=== PATIENT | female | born 2000 | race Asian ===

== ENCOUNTER 2023-09-27 01:34 | Emergency (ER) | payer MEDICAID, SELFPAY ==
--- NOTE | ~2023-09-27 | XR_ITS ---
EXAMINATION: XR ANKLE, RIGHT CLINICAL INFORMATION: Inversion injury. COMPARISON: None available. TECHNIQUE: AP, lateral, and mortise views of the right ankle. FINDINGS: No fracture. Alignment is anatomic. Ankle mortise is symmetric. No erosions. Joint spaces are maintained. Small ankle joint effusion. Mild soft tissue swelling at the ankle. XR/XR ankle RT min 3V IMPRESSION: 1. No acute fracture or malalignment. 2. Small ankle joint effusion.
--- NOTE | ~2023-09-27 | XR_ITS ---
EXAMINATION: XR FOOT, RIGHT CLINICAL INFORMATION: Fall. Pain. COMPARISON: None available. TECHNIQUE: AP, lateral, and oblique views of the right foot. FINDINGS: No fracture or malalignment. Bone mineralization is normal. Joint spaces well-preserved. No erosions. Ankle joint effusion. Ankle joint soft tissue swelling. XR/XR foot RT min 3V IMPRESSION: No acute fracture or malalignment. Ankle joint effusion and surrounding soft tissue swelling.
[2023-09-27 02:19] VITALS: BP 116/70; PULSE 87; RESP 16; TEMP 37.1; O2SAT 100; BMI 26.0
--- NOTE | 2023-09-27 03:33 | ED_ITS ---
HPI - Extremity Injury (Lower) General Chief Complaint: Extremity Injury, Lower Stated Complaint: right foot swelling and pain Time Seen by Provider: 09/27/23 03:25 Source: patient Mode of arrival: ambulatory Limitations: no limitations History of Present Illness ED Provider: PEACE CURRY Narrative: 23 yo female mechanical fall inversion injury to R ankle and fell onto L knee no injury to knee other than abrasion has never injured R ankle before MD complaint: ankle injury Onset (ago): hour(s) (1) Injury: Right: ankle Type of Injury: inversion Place: street/outdoors Severity: moderate Relieving factors: immobilization and rest Exacerbating factors: weight bearing, movement and palpation Context: fall Associated symptoms: snap/pop sensation and swelling Other symptoms: none Related Data Allergies Allergy/AdvReac Type Severity Reaction Status Date / Time No Known Allergies Allergy Verified 09/27/23 02:21 Review of Systems Review of Systems: Constitutional : No Fever, No Chills ENT/Mouth : No Ear Pain, No Hoarseness, No sore throat Cardiovascular : No Chest Pain, No SOB Respiratory : No Cough, No Dyspnea Gastrointestinal : No Nausea, No Vomiting, No Diarrhea, No abdominal Pain Musculoskeletal : positive joint pain, No Myalgias, pos Joint Swelling Skin : No Skin lacerations, No rash Neuro : No Weakness, No Numbness, No Loss of Consciousness, No Dizziness, No Headache Psych : No Anxiety/Panic, No Depression All other systems reviewed and are negative [facility] Past Medical History Attestation statement: The following information was validated with the patient. Source: old records reviewed Medical History No pertinent past medical history Social History Social History (Updated 09/27/23 @ 03:45 by Celi Wallace DO) Patient Tobacco Use Status: Never used Tobacco Advance Directives: No Advance Directives Information Provided: No Do you have a plan to hurt others: No Plan Physical Exam Vital Signs: Vital Signs: Last Vital Signs Temp 98.7 F 09/27/23 02:19 Pulse 87 09/27/23 02:19 Resp 16 09/27/23 02:19 BP 116/70 09/27/23 02:19 Pulse Ox 100 09/27/23 02:19 O2 Del Method Room Air 09/27/23 02:19 BMI result Body Mass Index 26.0 Appearance: Alert. Oriented X3. No acute distress. Eyes: Pupils equal, round and reactive to light. ENT: Pharynx normal. Neck: Normal inspection. Neck supple. CVS: Normal heart rate and rhythm. Pulses normal. Respiratory: No respiratory distress. Breath sounds normal. Abdomen: Soft and nontender. Skin: Skin warm and dry. Normal skin color. Normal skin turgor. Extremities: No lower extremity edema. R ankle ttp along anterior joint and lateral malleolus distal NV intact BCR in all digits silt throughout, no prox fibula ttp L knee normal ROM but has superficial abrasion noted Neuro: Oriented X 3. No motor deficit. No sensory deficit. Medical Decision Making Medical Decision Making MDM Narrative: 23 yo female with no sig PMH here with c/o R ankle injury and L knee abrasion at this time she is NV intact will obtain xrays of R ankle, clean L knee - aircast and crutches Differential Diagnosis Differential Diagnoses: The differential diagnosis associated with the presentation includes sprain, strain, fracture Independent Interpretation I performed an independent interpretation of an: Plain X-Ray (no fracture) Radiology Impression Discussion of test interpretation with radiology: I have reviewed the radiologist's reading. Independent Historian Clinical information obtained from an independent historian. History obtained from or confirmed by: Friend Prescription Management I considered prescription management with: Pain Medication Procedures Orthopedic Splinting/Casting Injury #1: Side: right Lower Extremity Injury Location: ankle Lower Extremity Immobilizer: AirCast Other Orthopedic Equipment: crutches Discharge Plan Discharge Clinical Impression: Ankle sprain and strain, Abrasion Patient Disposition: Home, Self-Care Instructions: Ankle Sprain (ED), Abrasion (ED) Additional Instructions: no broken bones in foot or ankle keep elevated, ice for 10 minutes at time use cloth in between crutches for 5 days then bear weight - aircast for 7 to 10 days what feels comfortable follow up with your doctot if not better in 1 week tylenol and motrin for pain Stand Alone Forms: Work/School Release Print Language: [place] Islander
[2023-09-27] MEDS: Acetaminophen 325 MG TABLET 975 MG PO (05:10)
[2023-09-27 05:15] VITALS: BP 116/70; PULSE 87; RESP 16; TEMP 37.1; O2SAT 100
== END 2023-09-27 05:20 | disposition home or self-care (01) ==
PROVIDERS: Emergency Provider Emergency Medicine
DX: S93.401A Sprain of unspecified ligament of right ankle, initial encounter (principal); S90.511A Abrasion, right ankle, initial encounter; M25.571 Pain in right ankle and joints of right foot; X50.1XXA Overexertion from prolonged static or awkward postures, initial encounter; Y93.9 Activity, unspecified; Y92.9 Unspecified place or not applicable; Y99.8 Other external cause status
CPT/HCPCS: 29515; 73610; 73630; 99283; 99284